=== PATIENT | female | born 1995 | race Caucasian/White ===

== ENCOUNTER 2023-06-14 19:43 | Observation (INO) | payer OTHER ==
[2023-06-14] MEDS ORDERED: Magnesium Sulfate 20 gm/500 ml 20 GM/500 ML BAG ONE (20:09)
[2023-06-14] MEDS ORDERED: Acetaminophen 500 MG TAB PO PRN (20:19)
[2023-06-14] MEDS ORDERED: Ondansetron PF 4 MG/2 ML Vial IVP PRN (20:19)
[2023-06-14] MEDS ORDERED: Promethazine HCl 25 MG/ML VIAL IM PRN (20:19)
[2023-06-14] MEDS ORDERED: Lorazepam 2 MG/ML VIAL SLOW IVP PRN (20:19)
[2023-06-14] MEDS ORDERED: Calcium Gluc 4.6 MEQ/10 ML (100 MG/ML) SLOW IVP PRN (20:19)
[2023-06-14] MEDS ORDERED: Zolpidem Tartrate 5 MG TAB PO PRN (20:19)
[2023-06-14] MEDS ORDERED: hydrALAZINE 20 MG/ML VIAL SLOW IVP PRN (20:19)
[2023-06-14] MEDS ORDERED: NIFEdipine XL 30 MG ER.TAB PO SCH (20:30)
[2023-06-14] MEDS ORDERED: Magnesium Sulfate 20 gm/500 ml 20 GM/500 ML BAG IVPB SCH (20:30)
[2023-06-14 20:32] VITALS: BMI 32.2
[2023-06-15] MEDS ORDERED: Simethicone Chewable 80 MG TAB PO PRN (07:41)
[2023-06-15] MEDS ORDERED: Bisacodyl 10 MG SUPP PR PRN (07:41)
[2023-06-15] MEDS ORDERED: diphenhydrAMINE 25 MG CAP PO PRN (07:41)
[2023-06-15] MEDS ORDERED: HYDROcodone/Acetaminophen 5/325 mg Tablet PO PRN ×2 (07:43)
[2023-06-15] MEDS ORDERED: Ibuprofen 800 MG TAB PO SCH ×2 (09:00)
[2023-06-15] MEDS: Prenatal Vitamin 1 TAB PO SCH (09:07)
[2023-06-15] MEDS: NIFEdipine XL 30 MG ER.TAB PO SCH (09:07)
[2023-06-15] MEDS: Lactated Ringer's 1,000 ML IV SCH (09:48)
[2023-06-15 13:14] LABS: Hematocrit 35.9 % (34.9-44.5); Hemoglobin 12.6 g/dL (12.0-15.5); Mean Corpuscular HGB CONC 35.1 g/dL (32.0-36.0); Mean Corpuscular Hemoglobin 29.1 pg (27.0-33.0); Mean Corpuscular Volume 82.9 fl (81.6-98.3); Mean Platelet Volume 9.9 fl (7.4-10.4); Platelet Count 310 10x3/uL (150-450); RBC Distribution Width 13.3 % (11.5-14.5); Red Blood Cell (RBC) Count 4.33 10x6/uL (3.90-5.03); White Blood Cell (WBC) Count 9.1 10x3/uL (3.5-10.5)
[2023-06-16 07:22] VITALS: TEMP 98.2
[2023-06-16] MEDS: Lactated Ringer's 1,000 ML IV SCH ×2 (07:42→07:43)
[2023-06-16] MEDS: Prenatal Vitamin 1 TAB PO SCH (08:44)
[2023-06-16] MEDS: NIFEdipine XL 30 MG ER.TAB PO SCH (08:44)
[2023-06-16 08:45] VITALS: BP 133/63
== END 2023-06-16 10:15 | disposition home or self-care (01) ==
LOC: CSHLD/OP 19:43 → CSHLD 20:28 → CSHANTE 06-15 19:08
PROVIDERS: ADMIT Obstetrics & Gynecology; ATTEND Obstetrics & Gynecology
DX: O10.912 Unspecified pre-existing hypertension complicating pregnancy, second trimester (principal); Z3A.24 24 weeks gestation of pregnancy; Z79.82 Long term (current) use of aspirin; Z79.899 Other long term (current) drug therapy; Z91.09 Other allergy status, other than to drugs and biological substances
CPT/HCPCS: 36415; 85027; 96374; 96376; 99285; G0378; J3475; J7120